=== PATIENT | female | born 1965 | race Caucasian/White ===

== ENCOUNTER → 2018-11-12 | Outpatient (REF) | payer OTHER | LOC: M LABDRAW1 16:28 | PROVIDERS: ATTEND Orthopaedic Surgery | DX: M25.562 Pain in left knee (principal); Z96.659 Presence of unspecified artificial knee joint ==

== ENCOUNTER → 2018-11-27 | Outpatient (CLI) | payer OTHER ==
--- NOTE | 2018-11-27 14:56 | REPMRS ---
Patient History The patient states she had a clinical breast exam in 11/2018. Patient is postmenopausal. Family history of colorectal cancer at age 50 or over and prostate cancer at age 50 or over in paternal uncle. Benign stereotactic core biopsy of the right breast, November 2016. Benign radio exam breast specimen of the right breast, August 15, 2014. Benign localization of breast nodule of the right breast, August 15, 2014. Took estrogen for 1 year 6 months. 3D TOMOSYNTHESIS WAS PERFORMED. Digital Woman Screen Mammo: November 27, 2018 - Exam #: [id number] Bilateral CC and MLO view(s) were taken. Technologist: Adina Read, Technologist Prior study comparison: November 26, 2017, digital woman screen mammo performed at [facility]. November 03, 2015, right breast digital mammo diagnostic unilateral, performed at [facility]. FINDINGS: The breast tissue is heterogeneously dense. This may lower the sensitivity of mammography. There has been no change in the appearance of the mammogram from the prior studies. There is a moderate amount of residual fibroglandular tissue which is fairly symmetric. There is no interval development of dominant mass, areas of architectural distortion, or clustered microcalcification typical of malignancy. Assessment: BI-RADS/ACR category 1 mammogram. Negative Mammogram. Recommendation Routine screening mammogram in 1 year (for women over age 40). This mammogram was interpreted with the aid of an FDA-approved computer-aided dectection system. Electronically Signed By: Marty David MD 11/27/18 9068
== END ==
LOC: M WHC 13:03
PROVIDERS: ATTEND Nurse Practitioner Women's Health
DX: Z12.31 Encounter for screening mammogram for malignant neoplasm of breast (principal); Z78.0 Asymptomatic menopausal state; Z86.018 Personal history of other benign neoplasm; Z79.890 Hormone replacement therapy

== ENCOUNTER → 2019-03-31 | Outpatient (REF) | payer OTHER ==
[2019-03-31 11:50] LABS: BASO % 0.3 % (0.0-1.0); HEMATOCRIT 37.9 % (36.0-47.0); HEMOGLOBIN 12.1 g/dl (12.0-15.5); LYMPH # 2.7 10^3/uL (1.5-5.0); MEAN CORPUSCULAR HEMOGLOBIN 30.1 pg (27.0-33.0); MEAN CORPUSCULAR HGB CONC 31.9 g/dl (32.0-36.5); MEAN CORPUSCULAR VOLUME 94.3 fl (80.0-96.0); MONO # 0.5 10^3/uL (0.0-0.8); MONO % 8.4 % (0.0-5.0); NEUTROPHILS # 3.1 10^3/uL (1.5-8.5); PLATELET COUNT, AUTOMATED 295 10^3/uL (150-450); RED BLOOD COUNT 4.02 10^6/uL (4.00-5.40); WHITE BLOOD COUNT 6.3 10^3/uL (4.0-10.0)
[2019-03-31 12:09] LABS: ALBUMIN 3.9 GM/DL (3.2-5.2); PERCENT SATURATION 28.7 % (13.2-45.0)
== END ==
LOC: M LABDRAW1 11:38
PROVIDERS: ATTEND Orthopaedic Surgery
DX: M25.562 Pain in left knee (principal); Z96.659 Presence of unspecified artificial knee joint

== ENCOUNTER → 2020-01-07 | Outpatient (CLI) | payer OTHER ==
--- NOTE | 2020-01-10 09:34 | REPMRS ---
Patient History The patient states she had a clinical breast exam in December 2019.Family history of colorectal cancer at age 50 or over and prostate cancer at age 50 or over in paternal uncle. Benign stereotactic core biopsy of the right breast, November 2016. Benign radio exam breast specimen of the right breast, August 15, 2014. Benign localization of breast nodule of the right breast, August 15, 2014. Took estrogen for 1 year 6 months. 3D TOMOSYNTHESIS WAS PERFORMED. The [facility] lifetime risk for breast cancer is 7.4%. VOLPARA DENSITY B. Digital Woman Screen Mammo: January 07, 2020 - Exam #: [id number] Bilateral CC and MLO view(s) were taken. Technologist: Tara Austin, Technologist Prior study comparison: November 27, 2018, bilateral digital woman screen mammo performed at [facility]. November 26, 2017, digital woman screen mammo performed at [facility]. FINDINGS: The breast tissue is heterogeneously dense. This may lower the sensitivity of mammography. There has been no change in the appearance of the mammogram from the prior studies. There is a moderate amount of residual fibroglandular tissue which is fairly symmetric. There is no interval development of dominant mass, areas of architectural distortion, or clustered microcalcification typical of malignancy. Assessment: BI-RADS/ACR category 1 mammogram. Negative Mammogram. Recommendation Routine screening mammogram in 1 year (for women over age 40). This mammogram was interpreted with the aid of an FDA-approved computer-aided dectection system. Electronically Signed By: Marty David MD 01/10/20 0934
== END ==
LOC: M WHC 14:34
PROVIDERS: ATTEND Nurse Practitioner Women's Health
DX: Z12.31 Encounter for screening mammogram for malignant neoplasm of breast (principal)

== ENCOUNTER → 2020-04-12 | Outpatient (CLI) | payer OTHER ==
[~2020-04-12] MED LIST: FOLI1TAB11 PO; INFL100I IV; METH2.5T48 PO; OXYC-517
== END ==
LOC: M LABSMTC 13:16
PROVIDERS: ATTEND Anesthesiology
DX: Z01.818 Encounter for other preprocedural examination (principal); Z20.828 Contact with and (suspected) exposure to other viral communicable diseases
CPT/HCPCS: C9803; U0003

== ENCOUNTER 2020-04-17 12:47 | Day surgery (SDC) | payer OTHER ==
[~2020-04-17] VITALS: Ht 157.5 cm; Wt 62.5 kg
[~2020-04-17 12:47] MED LIST changes: +LIDOCAINE 1% MDV 20ML VIAL SQ PRN; +LR 1,000 ML IV ONE; -OXYC-517; +ceFAZolin SOD 2 GM in IV 1 EA IV ONE
[2020-04-17] MEDS ORDERED: ROPIvacaine 0.5% 30ML INJECTION (J2795 PER 1MG) ONE (12:48)
[2020-04-17] MEDS ORDERED: EPINEPHrine INJ 1 MG/ML 1ML AMP ONE (12:48)
[2020-04-17] MEDS ORDERED: dexameTHASONE 10MG/1ML VIAL PRES.FREE (J1100 PER 1MG) ONE (12:48)
[2020-04-17] MEDS ORDERED: ONDANSETRON 4MG/2ML VIAL As Ordered ONE ×2 (13:39→20:31)
[2020-04-17] MEDS ORDERED: fentaNYL 250 MCG/5 ML INJECTION (J3010) As Ordered ONE (13:39)
[2020-04-17] MEDS ORDERED: propofoL 200 MG/20 ML VIAL As Ordered ONE (13:39)
[2020-04-17] MEDS ORDERED: LIDOCAINE 2% 100MG/5ML SDV (FOR ANES.) As Ordered ONE (13:39)
[2020-04-17] MEDS ORDERED: SUGAMMADEX SODIUM 500 MG/5 ML VIAL (BRIDION) As Ordered ONE (13:39)
[2020-04-17] MEDS ORDERED: ROCURONIUM BROMIDE 50 MG/5 ML VIAL As Ordered ONE (13:39)
[2020-04-17] MEDS ORDERED: dexameTHASONE 4 MG/ML 1ML VIAL (J1100 PER 1MG) As Ordered ONE (13:39)
[2020-04-17] MEDS ORDERED: MIDAZOLAM INJ 2MG/2ML VIAL (J2250 PER 1MG) As Ordered ONE ×2 (14:22→15:33)
[2020-04-17] MEDS ORDERED: fentaNYL 100 MCG/2 ML INJECTION (J3010) As Ordered ONE (14:22)
[2020-04-17] MEDS: MIDAZOLAM INJ 2MG/2ML VIAL (J2250 PER 1MG) IV PRN ×2 (14:36→14:42)
[2020-04-17] MEDS: fentaNYL 100 MCG/2 ML INJECTION (J3010) IV PRN ×2 (14:36→14:42)
[2020-04-17] MEDS ORDERED: METOCLOPRAMIDE INJ 10MG/2ML VIAL (J2765 PER 1) As Ordered ONE (15:32)
[2020-04-17] MEDS ORDERED: DESFLURANE 240 ML INHALANT As Ordered ONE (15:36)
[2020-04-17] MEDS ORDERED: ACETAMINOPHEN 1000MG 100ML IV BTL (OFIRMEV) (J0131 PER 10MG) As Ordered ONE (17:27)
[2020-04-17] MEDS ORDERED: EPINEPHrine 1MG/ML INJ 30ML MD-VIAL As Ordered ONE (17:39)
[2020-04-17] MEDS ORDERED: BUPIVACAINE HCL 0.25% 10ML VIAL As Ordered ONE (18:15)
[2020-04-17] MEDS ORDERED: LR 1,000 ML IV SCH ×2 (20:45→21:00)
[2020-04-17] MEDS ORDERED: oxyCODONE 5MG TAB PO PRN (20:45)
[2020-04-17] MEDS ORDERED: MEPERIDINE INJ 25 MG/ML VIAL (J2175) IV PRN (20:45)
[2020-04-17] MEDS ORDERED: ONDANSETRON 4MG/2ML VIAL IV PRN (20:45)
[2020-04-17] MEDS ORDERED: METOCLOPRAMIDE INJ 10MG/2ML VIAL (J2765 PER 1) IV PRN (20:45)
[2020-04-17] MEDS ORDERED: fentaNYL 100 MCG/2 ML INJECTION (J3010) IV PRN (20:45)
--- NOTE | 2020-04-17 20:59 | REPVR ---
PROCEDURE INFORMATION: Exam: XR Chest, 1 View Exam date and time: 04/17/2020 8:51 PM Age: 55 years old Clinical indication: Device placement; Other: Post- op; Additional info: Post op in pacu TECHNIQUE: Imaging protocol: XR of the chest Views: 1 view. COMPARISON: No relevant prior studies available. FINDINGS: Lungs: Unremarkable. No consolidation. Pleural space: Unremarkable. No pleural effusion. No pneumothorax. Heart/Mediastinum: Unremarkable. No cardiomegaly. Bones/joints: Unremarkable. IMPRESSION: No acute findings. Electronically signed by: Huang Zhang On 04/17/2020 20:59:43 PM
[2020-04-17 21:05] VITALS: BP 158/82
--- NOTE | 2020-04-26 08:31 | RO ---
DATE OF OPERATION: 04/17/2020 PREOPERATIVE DIAGNOSES: * Left shoulder high-grade partial rotator cuff tear. * Left shoulder impingement. * Left shoulder acromioclavicular joint arthritis. POSTOPERATIVE DIAGNOSES: 1. Left shoulder high-grade partial rotator cuff tear. 2. Left shoulder impingement. 3. Left shoulder acromioclavicular joint arthritis. 4. Partial long head of the biceps tear. PROCEDURES: * Left shoulder arthroscopic rotator cuff repair. * Left shoulder open subpectoral biceps tenodesis. * Left shoulder arthroscopic subacromial decompression including acromioplasty. * Left shoulder arthroscopic distal clavicle excision. SURGEON: Esteban Schmid M.D. ELECTION WATCHER: CARMELLA Minaya ANESTHESIA: General. IV FLUIDS: Lactated ringers. ESTIMATED BLOOD LOSS: 10 mL. IMPLANTS: Arthrex Proximal Biceps Button x1, Arthrex 4.75-mm PEEK SwiveLock anchor x3, Arthrex 5.5-mm PEEK SwiveLock anchor x1. CLOSURE: Nylon and Monocryl. PROCEDURE: Patient was identified in the preoperative holding area. The left shoulder was marked. She had an interscalene nerve block by anesthesia. She was brought to the operating room and placed supine on a well-padded OR table with a ellsworth bag. General anesthesia was induced. Examination under anesthesia revealed 170 of forward flexion, 90 external rotation with the arm at her side, no increased anterior and posterior translation. She was then placed in the right- side down lateral decubitus position with an axillary roll. All elena prominences were well-padded with bilateral SCDs for DVT prophylaxis. The left arm was then placed into the Arthrex StaR Sleeve lateral decubitus traction tejada with 10 pounds of traction. She then received appropriate IV antibiotics within one hour of incision. The left shoulder was then prepped and draped in a normal sterile fashion with ChloraPrep. A time-out was performed per hospital protocol. Irina Nails was present for the entire procedure and participated in all essential portions of the procedure. This included patient positioning and draping, holding the arthroscope, holding retractors during the biceps tenodesis which was particularly challenging due to the tight anatomy. She also assisting with whip stitching of the tendon, and then during the rotator cuff repair, assisted with anchor placement, suture retrieval, performed the clears, applied the dressing and sling. The left shoulder was insufflated with lactated Ringer's. A standard posterior viewing portal was made with an 11-blade. A 30 arthroscope was introduced into the joint. Diagnostic arthroscopy revealed grade 1 chondromalacia in the glenohumeral joint and it revealed some partial tearing of the biceps labral anchor. The tear was split to extend slightly into the biceps tendon itself. There was a partial articular tear of the supraspinatus. The subscapularis was pristine. An anterior working portal was established through the rotator interval and on probing of the biceps attachment to the superior labrum, there was a partial tear there. There was no lift-off of the subscapularis. There was also a Type I SLAP tear. I performed a debridement of the superior labrum, as well as the anterior labrum. I also performed a chondroplasty to the very superior glenoid. Shaver was then used to perform a debridement of the articular surface of the supraspinatus. This was not a full-thickness tear, but felt to represent a fairly high-grade partial articular tear. The shoulder was irrigated and drained. Arthroscope was placed in the subacromial space. Via lateral working portal, I performed a bursectomy, where there was extensive bursitis. There was a fairly high-grade partial bursal-sided supraspinatus tear. So, based on the partial articular and bursal-sided tearing and the fact that her tendon quality was poor based on MRI, I elected to complete the tear and then proceed with the rotator cuff repair. So, given the partial tear of the biceps in that it would also be in the way doing the repair of the supraspinatus, I did perform a tenotomy at the long head of the biceps just off of the superior labrum. An incision was made with a #15 blade just lateral to the axilla, dissection down to the biceps fascia with Metzenbaum scissors. The fascia was opened carefully and then the right-angle clamp was used to dissect out the long head of the biceps. A running locking whip stitch was then placed with the FiberLoop from the Arthrex Proximal Tenodesis kit. Excess tendon was trimmed and sent to pathology. Sutures were then loaded through the button per routine. A spade- tipped drill was used to create a unicortical drill hole within the bicipital groove. Bony debris was removed with irrigation. The button was passed through the drill hole on its manager specialty. The suture was then toggled which flipped the button and reduced the tendon to the groove nicely. Curve-free needles were then used to pass one limb of suture back through the tendon. The knot was tied by hand to lock the construct in place. This nicely restored the resting tension. The incision was then reirrigated. Deep fascia was closed with 2-0 Vicryl, subcuticular 2-0 Vicryl, and then a running Monocryl. At the end of the case, Steri-Strips were placed. I also injected 10 mL of 0.25% Marcaine without epinephrine. The arthroscope was now placed into the subacromial space. I should have mentioned that the radiofrequency cautery had already been used to complete the tear from [id number]. Shaver was used to debride the poor quality bursal surface of the supraspinatus. Once the tear was completed, the ring curette was used to clear all soft tissue off of the tuberosity to create a bleeding surface. The CA ligament was partially released. The anterior aspect of the acromion was identified. There was a moderate sized spur, so the bur was used to perform a formal acromioplasty, turning this in to a Type I morphology. At the AC joint, there was bone on bone contact, so through the anterior portal, the bur was used to remove approximately 6-7 mm of distal clavicle. I took great care to ensure all posterior, superior bone remained and no residual impingement. We then proceeded with the double-row rotator cuff repair. I percutaneously placed a 4.75-mm PEEK SwiveLock anchor just off the articular surface anteriorly, passed the eyelet stitches at the far anterior portion of the tear and the tape sutures in the anterior central portion of the tear. Eyelet sutures were then tied with a knot-pusher using alternating one-half inch technique to set the leading edge of the supraspinatus. I then placed a 5.5-mm SwiveLock preloaded with tape, this one in the posterior aspect, just off of the articular surface. This also had excellent fixation. Eyelet sutures were passed through the posterior central portion of the tear, tape sutures passed in the far posterior portion of the tear. Eyelet sutures were then tied with the knot- pusher. Now, the appropriate medial sutures were brought out through an anterior lateral cannula. An accessory portal had been established. Then, the sutures were loaded through a 4.75-mm PEEK SwiveLock anchor. The awl was used to create a socket in the lateral aspect of the anterior greater tuberosity. The anchor was docked, sutures tensioned, anchor inserted by hand with excellent fixation, and sutures were cut. The remaining sutures were loaded through a 4.75-mm PEEK SwiveLock anchor. An awl was again used to create a socket in the posterior greater tuberosity, anchor docked, sutures tension, anchor inserted by hand with very good fixation. Sutures were cut. There were no dog ears. There was excellent compression of rotator cuff to the tuberosity. The shoulder was internally and externally rotated. There was no lift-off or buckling. The shoulder was irrigated and drained. Portals were closed with nylon sutures. Bulky sterile dressing applied. She was extubated and transferred to the PACU in stable condition. PLAN: She will start physical therapy approximately two weeks postoperatively. Passive range of motion only until eight weeks, then she can start active assisted forward flexion. No active range of motion until 12 weeks. No rotator cuff strengthening until 12 weeks. KRISTAL
[2020-05-25] MEDS ORDERED: OXYC-517 (14:57)
== END 2020-04-17 21:30 | disposition home or self-care (01) ==
LOC: M SDC 12:47
PROVIDERS: ATTEND Orthopaedic Surgery
DX: M75.112 Incomplete rotator cuff tear or rupture of left shoulder, not specified as traumatic (principal); M75.22 Bicipital tendinitis, left shoulder; M75.42 Impingement syndrome of left shoulder; L40.9 Psoriasis, unspecified; E78.2 Mixed hyperlipidemia; Z79.899 Other long term (current) drug therapy
CPT/HCPCS: 23430; 29824; 29826; 29827; 64415; 71045; 88304; C1713; J0131; J0171; J0690; J1100; J2250; J2405; J2765; J2795; J3010

== ENCOUNTER → 2020-05-24 | Outpatient (CLI) | payer OTHER ==
[~2020-05-24] MED LIST changes: -LIDOCAINE 1% MDV 20ML VIAL SQ PRN; -LR 1,000 ML IV ONE; +OXYC-517; -ceFAZolin SOD 2 GM in IV 1 EA IV ONE
== END ==
LOC: M LABSMTC 11:24
PROVIDERS: ATTEND Anesthesiology
DX: Z01.818 Encounter for other preprocedural examination (principal)
CPT/HCPCS: C9803; U0002

== ENCOUNTER 2020-05-26 10:21 | Day surgery (SDC) | payer OTHER ==
[~2020-05-26] VITALS: Ht 157.5 cm; Wt 64.8 kg
[~2020-05-26 10:21] MED LIST changes: +LR 1,000 ML IV ONE
[2020-05-26] MEDS ORDERED: EPINEPHrine INJ 1 MG/ML 1ML AMP ONE (10:22)
[2020-05-26] MEDS ORDERED: ROPIvacaine 0.5% 30ML INJECTION (J2795 PER 1MG) ONE (10:22)
[2020-05-26] MEDS ORDERED: dexameTHASONE 10MG/1ML VIAL PRES.FREE (J1100 PER 1MG) ONE (10:22)
[2020-05-26] MEDS ORDERED: EPINEPHrine 1MG/ML INJ 30ML MD-VIAL As Ordered ONE (10:35)
[2020-05-26] MEDS ORDERED: ROCURONIUM BROMIDE 50 MG/5 ML VIAL As Ordered ONE (13:10)
[2020-05-26] MEDS ORDERED: LIDOCAINE 2% 100MG/5ML SDV (FOR ANES.) As Ordered ONE (13:10)
[2020-05-26] MEDS ORDERED: propofoL 200 MG/20 ML VIAL As Ordered ONE (13:10)
[2020-05-26] MEDS ORDERED: MIDAZOLAM INJ 2MG/2ML VIAL (J2250 PER 1MG) As Ordered ONE ×2 (13:11→13:22)
[2020-05-26] MEDS ORDERED: fentaNYL 100 MCG/2 ML INJECTION (J3010) As Ordered ONE ×4 (13:11→16:47)
[2020-05-26] MEDS ORDERED: dexameTHASONE 4 MG/ML 1ML VIAL (J1100 PER 1MG) As Ordered ONE (13:11)
[2020-05-26] MEDS ORDERED: ONDANSETRON 4MG/2ML VIAL As Ordered ONE (13:11)
[2020-05-26] MEDS ORDERED: ceFAZolin 2 GM/D5W 50 ML IV BAG (J0690 PER 500MG) As Ordered ONE (13:26)
[2020-05-26] MEDS: MIDAZOLAM INJ 2MG/2ML VIAL (J2250 PER 1MG) IV PRN ×3 (13:36→14:36)
[2020-05-26] MEDS: fentaNYL 100 MCG/2 ML INJECTION (J3010) IV PRN ×2 (13:36→13:39)
[2020-05-26] MEDS ORDERED: ACETAMINOPHEN 1000MG 100ML IV BTL (OFIRMEV) (J0131 PER 10MG) As Ordered ONE (13:38)
[2020-05-26] MEDS ORDERED: HYDROmorphone HCL 2 MG/ML 1ML VIAL (J1170) As Ordered ONE (13:40)
[2020-05-26] MEDS ORDERED: ceFAZolin SOD 2 GM in IV 1 EA IV ONE (13:45)
[2020-05-26] MEDS ORDERED: SUGAMMADEX SODIUM 500 MG/5 ML VIAL (BRIDION) As Ordered ONE (16:28)
[2020-05-26] MEDS ORDERED: BUPIVACAINE HCL 0.5% 10ML VIAL As Ordered ONE (16:59)
[2020-05-26] MEDS ORDERED: fentaNYL 100 MCG/2 ML INJECTION (J3010) IV PRN (18:00)
[2020-05-26] MEDS ORDERED: IBUPROFEN 600MG TAB PO SCH (18:00)
[2020-05-26] MEDS ORDERED: oxyCODONE 5MG TAB PO PRN ×2 (18:00)
[2020-05-26] MEDS ORDERED: ONDANSETRON 4MG/2ML VIAL IV PRN (18:00)
[2020-05-26] MEDS ORDERED: LR 1,000 ML IV SCH (18:00)
[2020-05-26] MEDS ORDERED: METOCLOPRAMIDE INJ 10MG/2ML VIAL (J2765 PER 1) IV PRN (18:00)
[2020-05-26] MEDS ORDERED: PERCOCET 5MG/325MG TAB PO PRN (18:00)
[2020-05-26 18:50] VITALS: BP 141/87
--- NOTE | 2020-05-29 12:19 | RO ---
DATE OF OPERATION: 05/26/2020 PREOPERATIVE DIAGNOSIS: * Left shoulder traumatic rotator cuff retear. POSTOPERATIVE DIAGNOSES: * Left shoulder traumatic rotator cuff retear. * Left shoulder arthrofibrosis. PROCEDURE: * Left shoulder manipulation under anesthesia. * Left shoulder arthroscopic lysis of adhesions. * Left shoulder arthroscopic revision, rotator cuff repair. * Left shoulder hardware removal. SURGEON: Esteban Schmid M.D. HOME ORGANIZER: Two scrub techs. ANESTHESIA: General with preoperative nerve block. IV FLUIDS: Lactated Ringer's. ESTIMATED BLOOD LOSS: 25 mL IMPLANTS: Arthrex 5.5 mm PEEK SwiveLock anchor x4. CLOSURE: Nylon. INDICATIONS: The patient identified in the preoperative holding area. The left shoulder was marked. This is a patient who had previously undergone a left shoulder rotator cuff repair and she had been following postop restrictions and unfortunately she suffered a fall on the stairs at work, landing directly onto her operative left shoulder. The patient experienced immediate worsening pain. We did attempt to work through this with physical therapy but she continued to have significant pain. We therefore obtained an MRI of the left shoulder which unfortunately confirmed a large retear of the rotator cuff repair. The risks and benefits of surgery had been discussed. Written, informed consent obtained. PROCEDURE: Following the patients nerve block, she was brought to the operating room, placed supine on a well-padded OR table. General anesthesia was induced. A preliminary timeout performed per hospital protocol. She received appropriate IV antibiotics within one hour of incision. Examination under anesthesia revealed 120 degrees of forward flexion, 50 degrees of external rotation with her arm at her side and 40 degrees of external rotation with her shoulder at 90. There was no increased anterior or posterior translation. I then performed a manipulation with gentle steady forward flexion and one small pop as felt but nothing overly traumatic. The patient was then brought down to a 90/90 position of abduction and external rotation without any further pops appreciated and then the shoulder was further adducted down to neutral position. Her shoulder was then brought into adduction followed by abduction. Her range of motion was now 170 degrees of forward flexion, 80 degrees of external rotation with her arm at her side and 90 degrees of external rotation with her shoulder at 90. She was then placed into the right side down lateral decubitus position with an axillary roll and all bony prominences well padded. Bilateral SCDs for DVT prophylaxis. The left arm was placed into the Arthrex Star sleeve lateral decubitus traction tejada in 10 lb of traction. The left shoulder was prepped and draped in the normal sterile fashion with ChloraPrep. Prior to the incision, a timeout was performed again. A posterior viewing portal was made with an 11 blade. A 30 degree arthroscope was introduced into the joint. Inspection of the joint revealed no significant chondromalacia. There was a thick middle glenohumeral ligament draped over the subscapularis but the subscapularis appeared intact. There was an obvious traumatic retear of the anterior supraspinatus. An anterior working portal was established through the rotator interval and the meniscal biter was used to release the upper half of the middle glenohumeral ligament. There was a negative drive-through sign. The subscapularis was pristine and there was no liftoff during the posterior lever push maneuver. I performed a gentle debridement of the undersurface of the supraspinatus. Again, this was a full-thickness retear of the anterior supraspinatus and a high-grade partial articular retear of the posterior supraspinatus. The arthroscope was now placed into the subacromial space where adhesions were released via a lateral working portal with shaver and cautery. The posterior portion of the repair appeared to be partly intact. The anterior portion has a full-thickness retear. The biotenodesis lyft driver was used to remove the two lateral SwiveLock anchors from the index procedure and then sutures were cut with the open cutter. I then was able to identify the two medial SwiveLock anchors and those were removed carefully with the biotenodesis lyft driver and all suture from the index rotator cuff repair was removed. Overall tissue quality was good but not great. The leading lateral edge of the supraspinatus was debrided with a shaver and a meniscal biter. The ring curette was used to scrape soft tissue off the tuberosity. I then proceeded with revision, rotator cuff repair. A 5.5 PEEK SwiveLock was placed into the original anteromedial socket with excellent fixation and then I passed the eyelet sutures through the far anterior portion of the tear and the tape sutures were passed through the anterior central portion of the tear. A second 5.5 SwiveLock was placed in the posteromedial aspect of the tuberosity, this one just posterior and lateral to the original socket which was not salvageable. The tape sutures were passed through the posterior central portion of the tear and the eyelet sutures were passed through the far posterior portion of the tear. The eyelet sutures were then tied using alternating half-hitch technique. I then proceeded with a lateral row fixation. I also placed a FiberLink through the far anterior portion of the tear to help avoid a dog ear. The appropriate medial row sutures were brought out through the anterolateral portal and loaded through a 5.5 SwiveLock anchor. A new socket had to be developed, anchor docked, sutures tensioned, anchor malleted, then inserted by hand with very good fixation. These steps were repeated with the remaining sutures and a posterolateral anchor also in a new socket. This had great fixation. This completed the double row rotator cuff revision repair with complete covering of the tuberosity. The shoulder was gently internally and externally rotated. There was no liftoff or buckling. The portals were closed with nylon suture. A bulky sterile dressing applied. I injected 10 mL of 1/2% Marcaine without epinephrine for additional anesthetic. After application of bulky sterile dressing, her ARC 2 sling was applied and she was awoken from general anesthesia, transferred to the PACU in stable condition. COMPLICATIONS: None. POSTOP PLAN: The patient will start physical therapy at the two week yuriy. She will only have passive motion for the first eight weeks postop. At week eight, she can start active assisted range of motion but no active range of motion until week 12. No rotator cuff strengthening until week 16. No reaching below shoulder height until week 16. MTDD
== END 2020-05-26 18:50 | disposition home or self-care (01) ==
LOC: M SDC 10:21
PROVIDERS: ATTEND Orthopaedic Surgery
DX: S46.012A Strain of muscle(s) and tendon(s) of the rotator cuff of left shoulder, initial encounter (principal); W10.8XXA Fall (on) (from) other stairs and steps, initial encounter; Y92.89 Other specified places as the place of occurrence of the external cause; Y99.0 Civilian activity done for income or pay; Y93.9 Activity, unspecified; Z92.21 Personal history of antineoplastic chemotherapy; Z79.899 Other long term (current) drug therapy; Z91.81 History of falling
CPT/HCPCS: 20680; 29825; 29827; 64415; C1713; J0131; J0171; J0690; J1100; J2250; J2405; J2795; J3010

== ENCOUNTER → 2020-08-15 | Outpatient (CLI) | payer OTHER ==
[~2020-08-15] MED LIST changes: -LR 1,000 ML IV ONE
[2020-08-15 17:51] LABS: BASO % 0.2 % (0.0-1.0); EOS % 0.3 % (0.0-3.0); HEMATOCRIT 38.6 % (36.0-47.0); HEMOGLOBIN 12.1 g/dl (12.0-15.5); LYMPH # 5.4 10^3/uL (1.5-5.0); LYMPH % 54.1 % (24.0-44.0); MEAN CORPUSCULAR HGB CONC 31.3 g/dl (32.0-36.5); MEAN CORPUSCULAR VOLUME 92.6 fl (80.0-96.0); MONO # 0.8 10^3/uL (0.0-0.8); MONO % 8.2 % (0.0-5.0); NEUTROPHILS # 3.7 10^3/uL (1.5-8.5); PLATELET COUNT, AUTOMATED 289 10^3/uL (150-450); RED BLOOD COUNT 4.17 10^6/uL (4.00-5.40)
[2020-08-15 18:17] LABS: ALBUMIN 4.3 GM/DL (3.2-5.2); ALT/SGPT 30 U/L (12-78); BILIRUBIN,DIRECT < 0.1 MG/DL (0.0-0.2); BILIRUBIN,TOTAL 0.2 MG/DL (0.2-1.0); BLOOD UREA NITROGEN 6 MG/DL (7-18); CALCIUM LEVEL 9.1 MG/DL (8.5-10.1); CARBON DIOXIDE LEVEL 28 MEQ/L (21-32); CHLORIDE LEVEL 108 MEQ/L (98-107); CREATININE FOR GFR 0.71 MG/DL (0.55-1.30); GLOMERULAR FILTRATION RATE > 60.0 (>51); GLUCOSE, FASTING 81 MG/DL (70-100); POTASSIUM SERUM 3.7 MEQ/L (3.5-5.1); RHEUMATOID FACTOR QUANT < 10.0 IU/ML (<15.0); SODIUM LEVEL 142 MEQ/L (136-145); TOTAL PROTEIN 7.3 GM/DL (6.4-8.2)
== END ==
LOC: M LAB 16:48
PROVIDERS: ATTEND Internal Medicine
DX: L40.50 Arthropathic psoriasis, unspecified (principal)

== ENCOUNTER 2020-09-04 10:14 | Outpatient (CLI) | payer OTHER ==
[~2020-09-04] VITALS: Ht 158.8 cm; Wt 70.4 kg
[2020-09-04] VITALS (7 sets, daily range): BP systolic 135–148; BP diastolic 65–77
[~2020-09-04 10:14] MED LIST changes: +ALBUTEROL SULFATE 2.5 MG/0.5 ML INH NEB SOLN INH PRN; +EPINEPHrine INJ 1 MG/ML 1ML AMP IM PRN; +NS 1,000 ML IV SCH; +diphenhydrAMINE 50MG/ML VIAL (J1200) IV PRN; +methylPREDNISolone 125MG 2ML VIAL IV PRN
[2020-09-04] MEDS ORDERED: INFLIXIMAB BIOSIMILAR 400 MG in NS 210 ML IV ONE (10:30)
== END 2020-09-04 12:55 | disposition home or self-care (01) ==
LOC: M INFU 10:14
PROVIDERS: ATTEND Internal Medicine
DX: L40.50 Arthropathic psoriasis, unspecified (principal)
CPT/HCPCS: 96365; 96366; Q5103

== ENCOUNTER 2020-10-30 10:20 | Outpatient (CLI) | payer OTHER ==
[~2020-10-30] VITALS: Ht 152.4 cm; Wt 70.4 kg
[2020-10-30] VITALS (7 sets, daily range): BP systolic 124–142; BP diastolic 62–70
[~2020-10-30 10:20] MED LIST changes: -NS 1,000 ML IV SCH
[2020-10-30] MEDS ORDERED: NS 1,000 ML IV SCH (10:30)
[2020-10-30] MEDS ORDERED: INFLIXIMAB BIOSIMILAR 400 MG in NS 210 ML IV ONE (10:30)
== END 2020-10-30 13:35 | disposition home or self-care (01) ==
LOC: M INFU 10:20
PROVIDERS: ATTEND Internal Medicine
DX: L40.50 Arthropathic psoriasis, unspecified (principal)
CPT/HCPCS: 96365; 96366; Q5103

== ENCOUNTER 2020-12-25 10:30 | Outpatient (CLI) | payer OTHER ==
[~2020-12-25] VITALS: Ht 158.8 cm; Wt 70.4 kg
[~2020-12-25 10:30] MED LIST changes: +INFLIXIMAB BIOSIMILAR 400 MG in NS 210 ML IV ONE; +NS 1,000 ML IV SCH
[2020-12-25 11:34] VITALS: BP 135/74
[2020-12-25 12:45] VITALS: BP 143/70
== END 2020-12-25 12:45 | disposition home or self-care (01) ==
LOC: M INFU 10:30
PROVIDERS: ATTEND Internal Medicine
DX: L40.50 Arthropathic psoriasis, unspecified (principal)
CPT/HCPCS: 96365; Q5103

== ENCOUNTER → 2021-01-25 | Outpatient (CLI) | payer OTHER ==
[~2021-01-25] MED LIST changes: -ALBUTEROL SULFATE 2.5 MG/0.5 ML INH NEB SOLN INH PRN; -EPINEPHrine INJ 1 MG/ML 1ML AMP IM PRN; -INFLIXIMAB BIOSIMILAR 400 MG in NS 210 ML IV ONE; -NS 1,000 ML IV SCH; -diphenhydrAMINE 50MG/ML VIAL (J1200) IV PRN; -methylPREDNISolone 125MG 2ML VIAL IV PRN
--- NOTE | 2021-01-25 17:02 | REPMRS ---
Patient History The patient states she had a clinical breast exam in January 2021. Family history of colorectal cancer at age 50 or over and prostate cancer at age 50 or over in paternal uncle. Benign stereotactic core biopsy of the right breast, November 2016. Benign radio exam breast specimen of the right breast, August 15, 2014. Benign localization of breast nodule of the right breast, August 15, 2014. Took estrogen for 1 year 6 months. Patient states no breast complaints today. Patient has signed MRS History Sheet. Digital Woman Screen Mammo: January 25, 2021 - Exam #: [id number] Bilateral CC and MLO view(s) were taken. Technologist: Marisol Rausch, Technologist Prior study comparison: January 07, 2020, bilateral digital woman screen mammo performed at [facility]. November 27, 2018, bilateral digital woman screen mammo performed at [facility]. November 26, 2017, digital woman screen mammo performed at [facility]. FINDINGS: There are scattered fibroglandular densities. The Volpara volumetric breast density category is:B. There has been no change in the appearance of the mammogram from the prior studies. There is a mild amount of scattered fibroglandular density which is fairly symmetric. There is no interval development of dominant mass, architectural distortion, or grouped microcalcification suggestive of malignancy. 3-D tomosynthesis shows no additional findings. Assessment: BI-RADS/ACR category 1 mammogram. Negative Mammogram. Recommendation Routine screening mammogram of both breasts in 1 year (for women over age 40). This patient's [facility] Lifetime Breast Cancer Risk is estimated at 7.2 %. This mammogram was interpreted with the aid of an FDA-approved computer-aided dectection system. Electronically Signed By: Chang Sanchez MD 01/25/21 [id number]
== END ==
LOC: M WHC 15:58
PROVIDERS: ATTEND Nurse Practitioner Women's Health
DX: Z12.31 Encounter for screening mammogram for malignant neoplasm of breast (principal)

== ENCOUNTER 2021-02-19 10:53 | Outpatient (CLI) | payer OTHER ==
[~2021-02-19] VITALS: Ht 157.5 cm; Wt 70.3 kg
[~2021-02-19 10:53] MED LIST changes: +ALBUTEROL SULFATE 2.5 MG/0.5 ML INH NEB SOLN INH PRN; +EPINEPHrine INJ 1 MG/ML 1ML AMP IM PRN; +INFLIXIMAB BIOSIMILAR 400 MG in NS 210 ML IV ONE; +diphenhydrAMINE 50MG/ML VIAL (J1200) IV PRN; +methylPREDNISolone 125MG 2ML VIAL IV PRN
[2021-02-19 11:25] VITALS: BP 135/84
[2021-02-19 11:32] VITALS: BP 138/84
[2021-02-19 12:25] VITALS: BP 136/76
[2021-02-19 13:12] VITALS: BP 147/70
== END 2021-02-19 13:20 | disposition home or self-care (01) ==
LOC: M INFU 10:53
PROVIDERS: ATTEND Internal Medicine
DX: L40.50 Arthropathic psoriasis, unspecified (principal)
CPT/HCPCS: 96365; Q5103

== ENCOUNTER 2021-04-02 10:40 | Outpatient (CLI) | payer OTHER ==
[~2021-04-02] VITALS: Ht 157.5 cm; Wt 66.9 kg
[~2021-04-02 10:40] MED LIST changes: +NS 1,000 ML IV SCH
[2021-04-02 10:45] VITALS: BP_SYST 136; BP_SYST 147; BP_DIAS 70; BP_DIAS 84
[2021-04-02 12:30] VITALS: BP 157/75
[2021-04-02 13:30] VITALS: BP 146/76
== END 2021-04-02 13:30 | disposition home or self-care (01) ==
LOC: M INFU 10:40
PROVIDERS: ATTEND Internal Medicine
DX: L40.50 Arthropathic psoriasis, unspecified (principal)
CPT/HCPCS: 96365; Q5103

== ENCOUNTER 2021-05-14 10:23 | Outpatient (CLI) | payer OTHER ==
[~2021-05-14] VITALS: Ht 157.5 cm; Wt 66.9 kg
[2021-05-14 10:46] VITALS: BP 125/73
[2021-05-14 11:24] VITALS: BP 118/62
[2021-05-14 12:27] VITALS: BP 146/81
== END 2021-05-14 12:27 | disposition home or self-care (01) ==
LOC: M INFU 10:23
PROVIDERS: ATTEND Internal Medicine
DX: L40.50 Arthropathic psoriasis, unspecified (principal)
CPT/HCPCS: 96365; Q5103

== ENCOUNTER 2021-07-09 10:25 | Outpatient (CLI) | payer OTHER ==
[~2021-07-09] VITALS: Ht 157.5 cm; Wt 66.9 kg
[~2021-07-09 10:25] MED LIST changes: -INFLIXIMAB BIOSIMILAR 400 MG in NS 210 ML IV ONE; -NS 1,000 ML IV SCH
[2021-07-09 10:55] VITALS: BP 142/78
[2021-07-09] MEDS ORDERED: INFLIXIMAB BIOSIMILAR 400 MG in NS 210 ML IV ONE (11:00)
[2021-07-09] MEDS ORDERED: NS 1,000 ML IV SCH (11:00)
[2021-07-09 11:50] VITALS: BP 138/69
[2021-07-09 13:11] VITALS: BP 142/79
[2021-07-09 13:15] VITALS: BP 142/79
== END 2021-07-09 13:15 | disposition home or self-care (01) ==
LOC: M INFU 10:25
PROVIDERS: ATTEND Internal Medicine
DX: L40.50 Arthropathic psoriasis, unspecified (principal)
CPT/HCPCS: 96365; 96366; Q5103

== ENCOUNTER 2021-09-10 12:28 | Outpatient (CLI) | payer OTHER ==
[~2021-09-10] VITALS: Ht 157.5 cm; Wt 68.5 kg
[2021-09-10 12:30] VITALS: BP 151/68
[2021-09-10] MEDS ORDERED: INFLIXIMAB BIOSIMILAR 400 MG in NS 210 ML IV ONE (13:00)
[2021-09-10 13:45] VITALS: BP 134/65
[2021-09-10 14:45] VITALS: BP 145/78
== END 2021-09-10 14:45 | disposition home or self-care (01) ==
LOC: M INFU 12:28
PROVIDERS: ATTEND Internal Medicine
DX: L40.50 Arthropathic psoriasis, unspecified (principal)
CPT/HCPCS: 96413; Q5103

== ENCOUNTER → 2021-09-11 | Outpatient (REF) | payer OTHER ==
[~2021-09-11] MED LIST changes: -ALBUTEROL SULFATE 2.5 MG/0.5 ML INH NEB SOLN INH PRN; -EPINEPHrine INJ 1 MG/ML 1ML AMP IM PRN; -diphenhydrAMINE 50MG/ML VIAL (J1200) IV PRN; -methylPREDNISolone 125MG 2ML VIAL IV PRN
[2021-09-13 08:14] LABS: LDL DIRECT 108 mg/dL (0-99)
== END ==
LOC: M LAB REF 16:20
PROVIDERS: ATTEND Registered Nurse
DX: E78.00 Pure hypercholesterolemia, unspecified (principal)

== ENCOUNTER → 2022-02-07 | Outpatient (CLI) | payer OTHER | LOC: M WHC 14:38 | PROVIDERS: ATTEND Specialist | DX: Z12.31 Encounter for screening mammogram for malignant neoplasm of breast (principal) ==

== ENCOUNTER → 2022-07-08 | Outpatient (CLI) | payer OTHER ==
[~2022-07-08] MED LIST changes: +ISOVUE-300 61% 50ML VIAL As Ordered ONE; +LIDOCAINE 1% MDV 20ML VIAL As Ordered ONE; +TRIAMCINOLONE ACETONIDE SUSP 40MG/ML 1ML VIAL As Ordered ONE
== END ==
LOC: M RAD 13:02
PROVIDERS: ATTEND Physician Assistant
DX: S46.012D Strain of muscle(s) and tendon(s) of the rotator cuff of left shoulder, subsequent encounter (principal)
CPT/HCPCS: 20610; 76000; J3301

== ENCOUNTER → 2023-03-17 | Outpatient (CLI) | payer OTHER ==
[~2023-03-17] MED LIST changes: -ISOVUE-300 61% 50ML VIAL As Ordered ONE; -LIDOCAINE 1% MDV 20ML VIAL As Ordered ONE; -TRIAMCINOLONE ACETONIDE SUSP 40MG/ML 1ML VIAL As Ordered ONE
== END ==
LOC: M WHC 09:00
PROVIDERS: ATTEND Nurse Practitioner Family
DX: Z12.31 Encounter for screening mammogram for malignant neoplasm of breast (principal)